=== PATIENT | female | born 1940 | race Caucasian/White ===

== ENCOUNTER 2022-04-08 12:51 | Emergency (ER) | payer OTHER ==
[~2022-04-08] VITALS: Ht 154.9 cm; Wt 63.0 kg
[2022-04-08 13:03] VITALS: BP 139/55
--- NOTE | 2022-04-08 13:27 | NUR ---
MD LOPEZ AT BEDSIDE FOR EVALUATION
--- NOTE | 2022-04-08 13:45 | NUR ---
PT TAKEN TO XRAY VIA WHEELCHAIR
[2022-04-08] MEDS ORDERED: IBUPROFEN 800 MG TAB PO ONE (13:50)
--- NOTE | 2022-04-08 13:55 | NUR ---
PT BROUGHT BACK VIA WHEELCHAIR
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
[2022-04-08] MEDS ORDERED: LID5T TP (15:00)
[2022-04-08 15:15] VITALS: BP 135/65
--- NOTE | 2022-04-08 15:15 | NUR ---
Patient discharged with v/s stable. Written and verbal after care instructions FOR MUSCLE SPRAIN AND HEAD INJRY given and explained. Patient alert, oriented and verbalized understanding of instructions. Ambulatory with steady gait. All questions addressed prior to discharge. ID band removed. Patient advised to follow up with PMD. Rx of LIDODERM given. Opportunity to ask questions provided and answered.
== END 2022-04-08 15:15 | disposition home or self-care (01) ==
LOC: MED 12:51
DX: S20.219A Contusion of unspecified front wall of thorax, initial encounter (principal); S00.01XA Abrasion of scalp, initial encounter; I10 Essential (primary) hypertension; E11.9 Type 2 diabetes mellitus without complications; E03.9 Hypothyroidism, unspecified; Z20.822 Contact with and (suspected) exposure to COVID-19; W19.XXXA Unspecified fall, initial encounter; Y93.89 Activity, other specified; Y92.811 Bus as the place of occurrence of the external cause; Y99.8 Other external cause status
CPT/HCPCS: 70450; 71046; 90471; 90715; 99284